=== PATIENT | female | born 1940 | race Caucasian/White ===

== ENCOUNTER 2023-07-22 20:56 | Inpatient (IN) | payer MEDICARE, OTHER ==
[2023-07-22 21:33] LABS: #Eosinphils 0.1 thou/uL (0.0-0.7); #Monocytes 0.7 thou/uL (0.11-0.59); #Neutrophils 5.5 thou/uL (1.40-6.50); %Basophils 0.3 % (0.0-1.0); %Eosinophils 1.1 % (0.0-10.0); %Lymphocytes 16.5 % (21.0-51.0); %Monocytes 8.6 % (0.0-10.0); %Neutrophils 73.2 % (42.0-75.0); Hematocrit 40.7 % (36.0-47.0); Hemoglobin 13.9 g/dL (12.0-16.0); Mean Corpuscular HGB CONC 34.2 g/dL (32.0-36.0); Mean Corpuscular Hemoglobin 30.8 pg (27.0-31.0); Platelet Count 272 10x3/uL (130-400); RBC Distribution Width 12.7 % (11.5-14.5); Red Blood Cell (RBC) Count 4.52 mill/uL (4.20-5.40); White Blood Cell (WBC) Count 7.5 10x3/uL (4.8-10.8)
[2023-07-22 21:56] LABS: ALT (SGPT) 9 U/L (8-55); AST (SGOT) 13 U/L (5-34); Albumin 4.3 g/dL (3.4-4.8); Alkaline Phosphatase 70 U/L (40-110); Anion Gap 15 mmol/L (10-20); BUN (Urea Nitrogen) 10 mg/dL (9.8-20.1); Bilirubin, Total 0.3 mg/dL (0.2-1.2); Calc. Creatinine Clearance 0 mL/min (70-130); Calcium 9.4 mg/dL (7.8-10.44); Carbon Dioxide 23 mmol/L (23-31); Chloride 105 mmol/L (98-107); Estimated GFR 79; Globulin 2.1 g/dL (2.4-3.5); Glucose 98 mg/dL (83-110); Lipase 19 U/L (8-78); Potassium 3.4 mmol/L (3.5-5.1); Protein, Total 6.4 g/dL (5.8-8.1); Sodium 140 mmol/L (136-145)
[2023-07-22 21:59] LABS: Troponin I Less than 0.010 ng/mL (< 0.028)
[2023-07-22] MEDS ORDERED: Ondansetron PF 4 MG/2 ML Vial ONE (22:05)
[2023-07-22] MEDS ORDERED: Nitroglycerin 2% Ointment 1 INCH/1 GM Packet ONE (23:01)
[2023-07-22] MEDS ORDERED: Aspirin Chewable 81 MG TAB ONE (23:01)
[2023-07-22] MEDS ORDERED: traMADol HCl 50 MG TAB PO PRN (23:35)
[2023-07-22] MEDS ORDERED: Ondansetron ODT 4 MG TAB PO PRN (23:36)
[2023-07-22] MEDS ORDERED: Acetaminophen 325 MG TAB PO PRN (23:36)
[2023-07-22] MEDS ORDERED: Acetaminophen 650 MG Suppository PR PRN (23:36)
[2023-07-22] MEDS ORDERED: Sodium Chloride 0.9% 1,000 ML IV SCH (23:45)
[2023-07-22 23:57] LABS: Bacteria/HPF None Seen HPF (None Seen); Bilirubin Negative (Negative); Blood, Urine Negative (Negative); CAUTI Indications for Culture Urological Procedure; Clarity Clear (Clear); Glucose, Urine (Dipstick) Normal (Negative); Ketone, Urine 10 mg/dL (Negative); Leukocyte Negative Leu/uL (Negative); Nitrite Negative (Negative); Protein, Urine (Dipstick) Negative (Neg-Trace); RBC/HPF 0-3 HPF (0-3); Specific Gravity, Urine 1.019 (1.002-1.036); Squamous Epithelial None Seen HPF (0-3); Urobilinogen Normal mg/dL (Less than 2); WBC/HPF 0-3 HPF (0-3)
[2023-07-23 00:06] LABS: Urine Culture Reflex Yes Yes
[2023-07-23] MEDS ORDERED: Electrolyte Replacement Protocol 1 EACH FS SCH (00:15)
[2023-07-23] MEDS ORDERED: Potassium Chloride 20 MEQ TAB PO SCH (00:30)
[2023-07-23] MEDS ORDERED: Zolpidem Tartrate 5 MG TAB PO SCH (01:15)
[2023-07-23 01:21] LABS: Magnesium 1.9 mg/dL (1.6-2.6); Phosphorus 2.4 mg/dL (2.3-4.7)
[2023-07-23 01:24] LABS: Troponin I Less than 0.010 ng/mL (< 0.028)
[2023-07-23 01:55] VITALS: BMI 23.1
[2023-07-23 04:25] LABS: #Monocytes 0.3 thou/uL (0.11-0.59); #Neutrophils 4.9 thou/uL (1.40-6.50); %Basophils 0.2 % (0.0-1.0); %Lymphocytes 13.6 % (21.0-51.0); %Monocytes 4.9 % (0.0-10.0); %Neutrophils 81.1 % (42.0-75.0); Hematocrit 35.9 % (36.0-47.0); Hemoglobin 12.3 g/dL (12.0-16.0); Mean Corpuscular HGB CONC 34.3 g/dL (32.0-36.0); Mean Corpuscular Hemoglobin 30.7 pg (27.0-31.0); Mean Corpuscular Volume 89.5 fl (78.0-98.0); Mean Platelet Volume 9.3 fL (7.4-10.4); Platelet Count 254 10x3/uL (130-400); RBC Distribution Width 12.9 % (11.5-14.5); Red Blood Cell (RBC) Count 4.01 mill/uL (4.20-5.40)
[2023-07-23 04:47] LABS: Anion Gap 11 mmol/L (10-20); BUN (Urea Nitrogen) 8 mg/dL (9.8-20.1); Calc. Creatinine Clearance 47 mL/min (70-130); Calcium 8.2 mg/dL (7.8-10.44); Carbon Dioxide 25 mmol/L (23-31); Chloride 107 mmol/L (98-107); Estimated GFR 77; Glucose 109 mg/dL (83-110); Potassium 3.7 mmol/L (3.5-5.1); Sodium 139 mmol/L (136-145)
[2023-07-23 04:59] LABS: Troponin I Less than 0.010 ng/mL (< 0.028)
[2023-07-23] MEDS ORDERED: Magnesium 2 GM/50 ML(in water) 2 GM in Premix 1 BAG IVPB SCH (08:00)
[2023-07-23] MEDS ORDERED: Sodium Chloride 0.9% 500 ML IV SCH (09:15)
[2023-07-23] MEDS ORDERED: Aspirin Chewable 81 MG TAB PO SCH (09:15)
[2023-07-23] MEDS ORDERED: Citalopram 10 MG TAB PO SCH (09:15)
[2023-07-23] MEDS: Sodium Chloride 0.9% 1,000 ML IV SCH ×2 (09:44→22:55)
[2023-07-23] MEDS: Ondansetron PF 4 MG/2 ML Vial IVP PRN ×2 (12:37→20:49)
[2023-07-23] MEDS ORDERED: hydrALAZINE 20 MG/ML VIAL SLOW IVP SCH (13:15)
[2023-07-23] MEDS ORDERED: Pantoprazole 40 MG VIAL IVP SCH (13:15)
[2023-07-23] MEDS ORDERED: Morphine 2 MG/ML VIAL SLOW IVP PRN (13:24)
[2023-07-23] MEDS ORDERED: Morphine 4 MG/ML VIAL ONE (13:29)
[2023-07-23] MEDS ORDERED: Morphine 2 MG/ML VIAL SLOW IVP SCH (13:30)
[2023-07-23] MEDS ORDERED: Metoclopramide HCl 10 MG/2 ML VIAL IVP SCH (13:30)
[2023-07-23] MEDS: Citalopram 10 MG TAB PO SCH ×2 (20:48→21:05)
[2023-07-23] MEDS: Zolpidem Tartrate 5 MG TAB PO SCH (20:48)
[2023-07-23] MEDS ORDERED: Lisinopril 10 MG TAB PO SCH (21:00)
[2023-07-24 04:30] LABS: Hemoglobin A1c 5.4 % (4.0-6.0)
[2023-07-24 04:51] LABS: Anion Gap 13 mmol/L (10-20); BUN (Urea Nitrogen) 5 mg/dL (9.8-20.1); Calc. Creatinine Clearance 48 mL/min (70-130); Calcium 8.3 mg/dL (7.8-10.44); Carbon Dioxide 23 mmol/L (23-31); Chloride 106 mmol/L (98-107); Estimated GFR 80; Glucose 101 mg/dL (83-110); Potassium 3.6 mmol/L (3.5-5.1); Sodium 138 mmol/L (136-145)
[2023-07-24] MEDS: Levothyroxine Sodium 50 MCG TAB PO SCH (04:56)
[2023-07-24] MEDS: Ondansetron PF 4 MG/2 ML Vial IVP PRN (07:28)
[2023-07-24] MEDS ORDERED: Lisinopril 20 MG TAB PO SCH (09:00)
[2023-07-24] MEDS ORDERED: Aspirin Chewable 81 MG TAB PO SCH (09:00)
[2023-07-24] MEDS: Pantoprazole 40 MG VIAL IVP SCH (10:13)
[2023-07-24] MEDS ORDERED: fentaNYL 50 mcg/mL 1 mL Vial ONE (11:29)
[2023-07-24] MEDS ORDERED: PROPOFOL 200 MG/20 ML VIAL ONE (11:39)
[2023-07-24] MEDS ORDERED: Ondansetron PF 4 MG/2 ML Vial ONE (11:39)
[2023-07-24] MEDS ORDERED: Prochlorperazine Edisylate 10 MG in Sodium Chloride 0.9% 50 ML IVPB PRN (12:53)
[2023-07-24] MEDS ORDERED: hydrALAZINE 20 MG/ML VIAL SLOW IVP SCH (13:00)
[2023-07-24] MEDS ORDERED: Citalopram 10 MG TAB PO SCH (16:00)
[2023-07-24] MEDS: Fluticasone Propionate Nasal Spray 16 gm Bottle NASAL SCH (17:37)
[2023-07-24] MEDS ORDERED: Fioricet 325/50/40 mg Tablet PO PRN (18:05)
[2023-07-24] MEDS: Lisinopril 20 MG TAB PO SCH (20:49)
[2023-07-24] MEDS: Zolpidem Tartrate 5 MG TAB PO SCH (20:50)
[2023-07-24] MEDS ORDERED: Amlodipine 5 MG TAB PO SCH ×2 (21:00)
[2023-07-25] MEDS: Levothyroxine Sodium 50 MCG TAB PO SCH (06:00)
[2023-07-25] MEDS: Lisinopril 20 MG TAB PO SCH (08:46)
[2023-07-25] MEDS: Pantoprazole 40 MG VIAL IVP SCH (08:47)
[2023-07-25] MEDS: Fluticasone Propionate Nasal Spray 16 gm Bottle NASAL SCH (08:47)
[2023-07-25 12:18] VITALS: TEMP 98.2
[2023-07-25 14:41] VITALS: BP 178/82
[2023-07-26] MEDS ORDERED: FLU VACC QS2023(65UP)/MF59C/PF 60 MCG/0.5 ML SYRINGE IM ONE (09:00)
== END 2023-07-25 16:45 | disposition home health service (06) | DRG 312 ==
LOC: ERS 20:56 → 2NO 23:40 → OBSVTOIN 07-23 11:43
PROVIDERS: ADMIT Student in an Organized Health Care Education/Training Program; ATTEND Internal Medicine
PROC: 0DB98ZX Excision of Duodenum, Via Natural or Artificial Opening Endoscopic, Diagnostic (ICD-10-PCS; principal; 2023-07-24)
PROC: 0D758ZZ Dilation of Esophagus, Via Natural or Artificial Opening Endoscopic (ICD-10-PCS; 2023-07-24)
DX: I95.1 Orthostatic hypotension (principal); E44.0 Moderate protein-calorie malnutrition; E03.9 Hypothyroidism, unspecified; I10 Essential (primary) hypertension; K21.9 Gastro-esophageal reflux disease without esophagitis; G47.00 Insomnia, unspecified; R33.9 Retention of urine, unspecified; R13.12 Dysphagia, oropharyngeal phase; E21.3 Hyperparathyroidism, unspecified; H93.19 Tinnitus, unspecified ear; Z68.23 Body mass index [BMI] 23.0-23.9, adult; Z88.5 Allergy status to narcotic agent; Z88.0 Allergy status to penicillin; Z88.8 Allergy status to other drugs, medicaments and biological substances; Z79.899 Other long term (current) drug therapy; Z90.49 Acquired absence of other specified parts of digestive tract; Z98.890 Other specified postprocedural states; Z98.49 Cataract extraction status, unspecified eye
CPT/HCPCS: 36415; 70450; 71045; 74177; 76700; 80048; 80053; 81001; 82607; 83036; 83690; 83735; 83970; 84100; 84425; 84443; 84484; 85025; 87086; 88305; 93005; 93306; C9113; J0360; J1650; J2270; J2405; J2765; J3010; J3475; J7030; J7050

== ENCOUNTER → 2023-09-01 | Day surgery (SDC) | payer MEDICARE | LOC: SDC 13:17 | PROVIDERS: ATTEND Physician Assistant Medical | PROC: 4A1B7BZ Monitoring of Gastrointestinal Pressure, Via Natural or Artificial Opening (ICD-10-PCS; principal; 2023-09-01) | DX: R13.19 Other dysphagia (principal); K21.9 Gastro-esophageal reflux disease without esophagitis; I10 Essential (primary) hypertension; F41.9 Anxiety disorder, unspecified; M19.90 Unspecified osteoarthritis, unspecified site; K57.90 Diverticulosis of intestine, part unspecified, without perforation or abscess without bleeding; Z90.49 Acquired absence of other specified parts of digestive tract; Z90.710 Acquired absence of both cervix and uterus; Z91.011 Allergy to milk products; Z88.5 Allergy status to narcotic agent; Z88.0 Allergy status to penicillin; Z88.8 Allergy status to other drugs, medicaments and biological substances; Z91.018 Allergy to other foods; Z79.82 Long term (current) use of aspirin; Z79.890 Hormone replacement therapy; Z79.899 Other long term (current) drug therapy | CPT/HCPCS: 91010 ==

== ENCOUNTER 2024-05-11 01:27 | Observation (INO) | payer MEDICARE, OTHER ==
[2024-05-11 04:37] LABS: #Basophils 0.03 10x3/uL (0.0-0.2); %Basophils 0.5 % (0.0-1.0); %Eosinophils 2.1 % (0.0-10.0); %Lymphocytes 22.1 % (21.0-51.0); %Monocytes 9.8 % (0.0-10.0); %Neutrophils 65.3 % (42.0-75.0); Hematocrit 39.2 % (36.0-47.0); Hemoglobin 13.4 g/dL (12.0-16.0); Mean Corpuscular HGB CONC 34.2 g/dL (32.0-36.0); Mean Corpuscular Hemoglobin 32.5 pg (27.0-31.0); Mean Corpuscular Volume 95.1 fL (78.0-98.0); Mean Platelet Volume 8.3 fL (7.4-10.4); Platelet Count 293 10x3/uL (130-400); RBC Distribution Width 12.4 % (11.5-14.5); Red Blood Cell (RBC) Count 4.12 mill/uL (4.20-5.40)
[2024-05-11 04:51] LABS: INR-International Normal Ratio 0.9; Prothrombin Time 12.5 sec (12.0-14.7)
[2024-05-11 04:56] LABS: ALT (SGPT) 13 U/L (8-55); AST (SGOT) 15 U/L (5-34); Albumin 3.7 g/dL (3.4-4.8); Alkaline Phosphatase 118 U/L (40-110); Anion Gap 16 mmol/L (10-20); BUN (Urea Nitrogen) 15 mg/dL (9.8-20.1); Bilirubin, Total 0.6 mg/dL (0.2-1.2); Calc. Creatinine Clearance 0 mL/min (70-130); Calcium 9.1 mg/dL (7.8-10.44); Carbon Dioxide 25 mmol/L (23-31); Chloride 102 mmol/L (98-107); Estimated GFR 84; Globulin 3.1 g/dL (2.4-3.5); Glucose 117 mg/dL (83-110); Magnesium 2.2 mg/dL (1.6-2.6); Protein, Total 6.8 g/dL (5.8-8.1); Sodium 139 mmol/L (136-145)
[2024-05-11] MEDS ORDERED: Promethazine HCl 25 MG/ML VIAL IM PRN (06:00)
[2024-05-11] MEDS ORDERED: Ondansetron PF 4 MG/2 ML Vial IVP PRN (06:00)
[2024-05-11] MEDS ORDERED: Ondansetron ODT 4 MG TAB SL PRN (06:00)
[2024-05-11] MEDS ORDERED: Acetaminophen 325 MG TAB PO PRN ×2 (06:00→22:51)
[2024-05-11] MEDS: Sodium Chloride 0.9% 1,000 ML IV SCH (11:37)
[2024-05-11] MEDS ORDERED: Acetaminophen 325 MG TAB ONE (13:59)
[2024-05-11] MEDS ORDERED: Acetaminophen 325 MG (10.15 ML) UDCUP ONE (14:10)
[2024-05-11] MEDS: Acetaminophen 650 MG/20.3 ML UDCUP PO PRN (14:22)
[2024-05-11 16:36] VITALS: BMI 23.1
[2024-05-11] MEDS: hydrALAZINE 20 MG/ML VIAL SLOW IVP PRN (17:00)
[2024-05-11] MEDS: Lisinopril 20 MG TAB PO SCH (20:52)
[2024-05-11] MEDS: Amlodipine 5 MG TAB PO SCH (20:53)
[2024-05-11] MEDS: HYDROcodone/Acetaminophen 5/325 mg Tablet PO PRN (22:58)
[2024-05-12 04:19] LABS: #Basophils 0.03 10x3/uL (0.0-0.2); %Basophils 0.6 % (0.0-1.0); %Eosinophils 2.5 % (0.0-10.0); %Lymphocytes 30.7 % (21.0-51.0); %Monocytes 12.5 % (0.0-10.0); %Neutrophils 53.3 % (42.0-75.0); Hematocrit 36.8 % (36.0-47.0); Hemoglobin 12.3 g/dL (12.0-16.0); Mean Corpuscular HGB CONC 33.4 g/dL (32.0-36.0); Mean Corpuscular Hemoglobin 31.2 pg (27.0-31.0); Mean Corpuscular Volume 93.4 fL (78.0-98.0); Mean Platelet Volume 8.5 fL (7.4-10.4); Platelet Count 287 10x3/uL (130-400); RBC Distribution Width 12.3 % (11.5-14.5); Red Blood Cell (RBC) Count 3.94 mill/uL (4.20-5.40)
[2024-05-12 04:36] LABS: Anion Gap 11 mmol/L (10-20); BUN (Urea Nitrogen) 10 mg/dL (9.8-20.1); Calc. Creatinine Clearance 52 mL/min (70-130); Calcium 8.2 mg/dL (7.8-10.44); Carbon Dioxide 24 mmol/L (23-31); Chloride 108 mmol/L (98-107); Estimated GFR 87; Glucose 99 mg/dL (83-110); Potassium 3.7 mmol/L (3.5-5.1); Sodium 139 mmol/L (136-145)
[2024-05-12] MEDS: Levothyroxine Sodium 50 MCG TAB PO SCH (06:51)
[2024-05-12] MEDS: DULoxetine 30 MG CAP PO SCH (08:39)
[2024-05-12] MEDS: Acetaminophen 325 MG (10.15 ML) UDCUP PO PRN (12:43)
[2024-05-12 13:07] VITALS: TEMP 98
[2024-05-12 16:17] VITALS: BP 157/80
== END 2024-05-12 18:52 | disposition home health service (06) ==
LOC: ERS 01:27 → 2SE 05:49 → ERHOLD 05:49 → 2SE 16:12
PROVIDERS: ADMIT Specialist; ATTEND Specialist
DX: S06.5XAA Traumatic subdural hemorrhage with loss of consciousness status unknown, initial encounter (principal); I48.91 Unspecified atrial fibrillation; E78.5 Hyperlipidemia, unspecified; I10 Essential (primary) hypertension; E11.9 Type 2 diabetes mellitus without complications; Z79.01 Long term (current) use of anticoagulants; Z79.899 Other long term (current) drug therapy; W18.30XA Fall on same level, unspecified, initial encounter; Z88.0 Allergy status to penicillin; Z88.5 Allergy status to narcotic agent
CPT/HCPCS: 70450; 72125; 80048; 80053; 83735; 85025 ×2; 85610; 85730; 93005; 96374; 97110; 97116 ×2; 97535; 99285; G0378 ×3; J0360; J7030 ×2; 36415

== ENCOUNTER 2024-07-20 12:33 | Outpatient (CLI) | payer MEDICARE | END 2024-07-20 12:34 | disposition home or self-care (01) | LOC: CT 12:33 | PROVIDERS: ATTEND Surgery | DX: I62.03 Nontraumatic chronic subdural hemorrhage (principal) | CPT/HCPCS: 70450 ==

== ENCOUNTER 2024-08-31 13:50 | Outpatient (CLI) | payer MEDICARE | END 2024-08-31 13:51 | disposition home or self-care (01) | LOC: BICCT 13:50 | PROVIDERS: ATTEND Surgery | DX: S06.5XAD Traumatic subdural hemorrhage with loss of consciousness status unknown, subsequent encounter (principal) | CPT/HCPCS: 70450 ==

== ENCOUNTER 2025-04-28 12:46 | Emergency (ER) | payer MEDICARE ==
[2025-04-28 14:23] LABS: #Basophils 0.03 10x3/uL (0.0-0.2); #Eosinophils 0.03 10x3/uL (0.0-0.7); #Monocytes 0.58 10x3/uL (0.11-0.59); #Neutrophils 7.90 10x3/uL (1.40-6.50); %Basophils 0.3 % (0.0-1.0); %Eosinophils 0.3 % (0.0-10.0); %Lymphocytes 7.2 % (21.0-51.0); %Monocytes 6.3 % (0.0-10.0); %Neutrophils 85.6 % (42.0-75.0); Hematocrit 37.2 % (36.0-47.0); Hemoglobin 12.5 g/dL (12.0-16.0); Mean Corpuscular Hemoglobin 31.8 pg (27.0-31.0); Mean Corpuscular Volume 94.7 fL (78.0-98.0); Platelet Count 236 10x3/uL (130-400); Red Blood Cell (RBC) Count 3.93 mill/uL (4.20-5.40); White Blood Cell (WBC) Count 9.23 10x3/uL (4.8-10.8)
[2025-04-28 14:38] LABS: INR-International Normal Ratio 1.0; PTT 29.4 sec (22.9-36.1); Prothrombin Time 13.6 sec (12.0-14.7)
[2025-04-28 14:43] LABS: Troponin I Less than 0.010 ng/mL (< 0.028)
[2025-04-28 14:45] LABS: ALT (SGPT) 21 U/L (Less than 34); AST (SGOT) 28 U/L (11-34); Albumin 3.8 g/dL (3.1-4.5); Alkaline Phosphatase 100 U/L (40-110); Anion Gap 14 mmol/L (10-20); BUN (Urea Nitrogen) 15 mg/dL (9.8-20.1); Bilirubin, Total 0.6 mg/dL (0.3-1.2); Calc. Creatinine Clearance 0 mL/min (70-130); Calcium 8.8 mg/dL (7.8-10.44); Carbon Dioxide 24 mmol/L (23-31); Chloride 102 mmol/L (98-107); Globulin 3.1 g/dL (2.4-3.5); Glucose 108 mg/dL (83-110); Magnesium 2.1 mg/dL (1.6-2.6); Potassium 4.1 mmol/L (3.5-5.1); Sodium 136 mmol/L (136-145)
== END 2025-04-28 15:29 | disposition home or self-care (01) ==
LOC: ERS 12:46
DX: S06.9X9A Unspecified intracranial injury with loss of consciousness of unspecified duration, initial encounter (principal); S00.03XA Contusion of scalp, initial encounter; E78.00 Pure hypercholesterolemia, unspecified; E03.9 Hypothyroidism, unspecified; I10 Essential (primary) hypertension; Z55.6 Problems related to health literacy; Z79.899 Other long term (current) drug therapy; Z79.890 Hormone replacement therapy; W22.8XXA Striking against or struck by other objects, initial encounter; Y93.89 Activity, other specified
CPT/HCPCS: 70450; 72125; 80053; 83735; 84146; 84484; 85025; 85610; 85730

== ENCOUNTER 2025-07-20 07:40 | Emergency (ER) | payer MEDICARE ==
[2025-07-20] MEDS ORDERED: Iopamidol-370 76% 500 ML MDV (1 ML CHARGE) ONE (08:06)
[2025-07-20 08:18] LABS: #Basophils 0.03 10x3/uL (0.0-0.2); #Eosinophils 0.08 10x3/uL (0.0-0.7); #Monocytes 0.39 10x3/uL (0.11-0.59); #Neutrophils 4.12 10x3/uL (1.40-6.50); %Basophils 0.5 % (0.0-1.0); %Eosinophils 1.4 % (0.0-10.0); %Lymphocytes 15.9 % (21.0-51.0); %Monocytes 7.1 % (0.0-10.0); %Neutrophils 74.7 % (42.0-75.0); Hematocrit 37.4 % (36.0-47.0); Hemoglobin 12.1 g/dL (12.0-16.0); Mean Corpuscular Hemoglobin 30.5 pg (27.0-31.0); Mean Corpuscular Volume 94.2 fL (78.0-98.0); Platelet Count 230 10x3/uL (130-400); Red Blood Cell (RBC) Count 3.97 mill/uL (4.20-5.40); White Blood Cell (WBC) Count 5.52 10x3/uL (4.8-10.8)
[2025-07-20 08:36] LABS: ALT (SGPT) 16 U/L (Less than 34); AST (SGOT) 23 U/L (11-34); Albumin 3.6 g/dL (3.1-4.5); Alkaline Phosphatase 93 U/L (40-110); Anion Gap 13 mmol/L (10-20); BUN (Urea Nitrogen) 11 mg/dL (9.8-20.1); Bilirubin, Total 0.7 mg/dL (0.3-1.2); Calc. Creatinine Clearance 0 mL/min (70-130); Calcium 9.4 mg/dL (7.8-10.44); Carbon Dioxide 24 mmol/L (23-31); Chloride 104 mmol/L (98-107); Globulin 2.8 g/dL (2.4-3.5); Glucose 94 mg/dL (83-110); Potassium 4.1 mmol/L (3.5-5.1); Sodium 137 mmol/L (136-145)
== END 2025-07-20 10:00 | disposition home or self-care (01) ==
LOC: ERS 07:40
DX: S09.90XA Unspecified injury of head, initial encounter (principal); R19.00 Intra-abdominal and pelvic swelling, mass and lump, unspecified site; I10 Essential (primary) hypertension; E05.90 Thyrotoxicosis, unspecified without thyrotoxic crisis or storm; Z79.899 Other long term (current) drug therapy; Z79.890 Hormone replacement therapy; W19.XXXA Unspecified fall, initial encounter; W22.8XXA Striking against or struck by other objects, initial encounter
CPT/HCPCS: 70450; 71260; 72125; 74177; 80053; 84146; 84484; 85025; 93005; 94760; 96374; J3010